=== PATIENT | male | born 1950 | race Caucasian/White ===

== ENCOUNTER 2023-10-10 11:22 | Outpatient (CLI) | payer MEDICARE, MEDICAID | END 2023-10-10 23:59 | disposition home or self-care (01) | LOC: RAD 11:22 | PROVIDERS: ATTEND Family Medicine | DX: J98.11 Atelectasis (principal); R09.02 Hypoxemia; I70.0 Atherosclerosis of aorta | CPT/HCPCS: 71046 ==

== ENCOUNTER 2023-10-22 10:07 | Emergency (ER) | payer MEDICARE, MEDICAID ==
[~2023-10-22] VITALS: Ht 182.9 cm; Wt 81.8 kg
[2023-10-22 10:14] VITALS: TEMP 97.7
[2023-10-22 11:01] VITALS: BP 136/45; PULSE 61; RESP 16; O2SAT 94
== END 2023-10-22 12:34 | disposition left against medical advice (07) ==
LOC: ER 10:08
DX: R09.89 Other specified symptoms and signs involving the circulatory and respiratory systems (principal); R60.0 Localized edema; R09.02 Hypoxemia; R34 Anuria and oliguria; N18.9 Chronic kidney disease, unspecified; Z88.0 Allergy status to penicillin
CPT/HCPCS: 71046; 93005; 99284